=== PATIENT | female | born 1945 | race Caucasian/White ===

== ENCOUNTER 2020-04-06 15:31 | Emergency (ER) | payer OTHER ==
[~2020-04-06] VITALS: Ht 170.2 cm; Wt 77.1 kg
[2020-04-06 15:50] VITALS: BP 148/116
--- NOTE | 2020-04-06 15:57 | NUR ---
74 YEAR OLD FEMALE COMPLAINS OF FLU-LIKE SYMPTOMS X 8-10 DAYS. PATIENT STATES SOB, SPO2 97% RA. WHEEZING HEARD THOUGHOUT. PATIENT STATES COUGH WITH SLIGHT GREEN PHLEGM. DENIES LOSS OF TASTE/SMELL. CHEST EXPANSION SYMMETRICAL. BREATHING EVEN AND UNLABORED. SKIN COLOR APPROPRIATE. AO4, SKIN WARM AND DRY. BED IN LOWEST POSITION, LOCKED, X1 SIDERAIL UP. PMH - ASTHMA, HYSTERECTOMY, CHOLECYSTECTOMY NKA
[2020-04-06] MEDS ORDERED: HYDROcodone/APAP 5/325 MG 1 TAB TAB PO ONE (16:05)
[2020-04-06] MEDS ORDERED: ALBUTEROL SULFATE/IPRATROPIU 3 ML SOL IH ONE (16:05)
--- NOTE | 2020-04-06 16:21 | NUR ---
JESS AND NOVEL CORONAVIRUS NOAM OBTAINED AND TAKEN TO LAB
[2020-04-06 16:41] LABS: APPEARANCE,URINE CLEAR (CLEAR); BILIRUBIN,URINE NEGATIVE (NEGATIVE); BLOOD, URINE TRACE-I (NEGATIVE); COLOR,URINE YELLOW (YELLOW); LEUKOCYTE ESTERASE ,URINE TRACE (NEGATIVE); NITRITE, URINE NEGATIVE (NEGATIVE); UGLUCOSE NEGATIVE (NEGATIVE)
[2020-04-06 17:01] LABS: BASOPHILS # (AUTO) 0.1 K/uL (0.00-0.22); EOSINOPHILS # (AUTO) 2.5 K/uL (0-0.4); EOSINOPHILS % (AUTO) 20.6 % (0.0-4.0); HEMATOCRIT 40.9 % (36-48); HEMOGLOBIN 13.7 g/dL (12.0-16.0); LYMPHOCYTES # (AUTO) 3.4 K/uL (2.5-16.5); LYMPHOCYTES % (AUTO) 28.1 % (20.5-51.1); MEAN CORPUSCULAR HEMOGLOBIN 31 pg (27-31); MEAN CORPUSCULAR HGB CONC 33 g/dL (33-37); MEAN CORPUSCULAR VOLUME 93.2 fL (80-94); MONOCYTES # (AUTO) 0.8 K/uL (0.8-1.0); MONOCYTES % (AUTO) 6.5 % (1.7-9.3); NEUTROPHILS # (AUTO) 5.3 K/uL (1.8-7.7); NEUTROPHILS % (AUTO) 43.8 % (42.2-75.2); PLATELET COUNT (AUTO) 249 K/uL (140-450); RED BLOOD CELL COUNT(AUTO) 4.38 MIL/uL (4.20-5.40); RED CELL DISTRIBUTION WIDTH 12.9 % (11.6-13.7); WHITE BLOOD COUNT (AUTO) 12.2 K/uL (4.8-10.8)
[2020-04-06 17:23] LABS: ALBUMIN 3.7 g/dL (3.4-5.0); ANION GAP 10.7 (8-16); ASPARTATE AMINOTRANSFERASE 20 U/L (15-37); CARBON DIOXIDE 29.6 mmol/L (21-32); CHLORIDE 104 mmol/L (98-107); CREATININE 1.1 mg/dL (0.6-1.3); GLUCOSE 103 mg/dL (74-106); POTASSIUM 4.3 mmol/L (3.5-5.1); SODIUM SERUM 140 mmol/L (136-145); TOTAL BILIRUBIN 0.3 mg/dL (0.0-1.0); UREA NITROGEN, BLOOD 16 mg/dL (7-18)
[2020-04-06 17:36] LABS: WBC,URINE 0-5 /HPF (0-5)
--- NOTE | 2020-04-06 18:28 | NUR ---
RT CALLED, STATE THEY WILL BE HERE SOON
--- NOTE | 2020-04-06 18:37 | NUR ---
PER SUZIE RT, BREATHING TX DONE PRIOR TO HIS ARRIVAL
[2020-04-06 18:39] VITALS: BP 148/116
--- NOTE | 2020-04-06 18:40 | NUR ---
Patient discharged with v/s stable. Written and verbal after care instructions ABOUT ASTHMA AND UPPER RESPIRATORY INFECTION given and explained. Patient alert, oriented and verbalized understanding of instructions. Ambulatory with steady gait. All questions addressed prior to discharge. ID band removed. Patient advised to follow up with PMD. Rx of PREDNISONE, PROMETHAZINE, NORCO, AND ALBUTEROL given. Patient educated on indication of medication including possible reaction and side effects. Opportunity to ask questions provided and answered.
== END 2020-04-06 18:28 | disposition home or self-care (01) ==
LOC: MED 15:31
DX: R05 Cough (principal); M79.10 Myalgia, unspecified site; R06.02 Shortness of breath; J45.909 Unspecified asthma, uncomplicated; Z90.49 Acquired absence of other specified parts of digestive tract; Z20.822 Contact with and (suspected) exposure to COVID-19
CPT/HCPCS: 71045; 80053; 81001; 85025; 87426; 99284; U0003

== ENCOUNTER 2020-05-27 07:33 | Emergency (ER) | payer OTHER ==
[~2020-05-27] VITALS: Ht 167.6 cm; Wt 77.1 kg
[2020-05-27 07:43] VITALS: BP 159/72
--- NOTE | 2020-05-27 07:51 | NUR ---
PT AMB TO BED 8.
--- NOTE | 2020-05-27 07:55 | NUR ---
74 y/o F coming in from home with c/c shortness of breath x cough. Patient states cough with green phlegm, sore throat, and subjective fever/chills x 10 days. Patient states the cough is bothering her at the most. Patient denies chest pain, N/V/D, constipation, headache, dizziness, abdominal pain, back pain, urinary symptoms at this time. Pt denies taking her Albuterol treatment or any other medications prior to arrival. Pt states she is unsure of what worsens the SOB due to being in bed for the past 10 days. Patient placed onto environmental monitoring specialist. Lung sounds wheezes lower and mid lobes. Pt presents to bedside with baseline SpO2 89% on room air; pt placed onto 4L via nasal cannula SpO2 96% after administration. Bed locked in lowest position, side rails x 1, call light in reach. PMH: DM2, Asthma Meds: Metformin, Albuterol Allergies: Pet dander Sx: cholecystectomy 40+ yrs ago, hysterectomy 30+ yrs
[2020-05-27] MEDS ORDERED: guaiFENesin 600 MG TABER PO SCH (08:15)
[2020-05-27] MEDS ORDERED: NACL 0.9% 1,000 ML IV SCH (08:15)
[2020-05-27] MEDS ORDERED: ALBUTEROL SULFATE/IPRATROPIU 3 ML SOL IH ONE ×3 (08:15→10:00)
--- NOTE | 2020-05-27 08:25 | NUR ---
Lab at bedside
--- NOTE | 2020-05-27 08:25 | NUR ---
RT at bedside
--- NOTE | 2020-05-27 08:26 | NUR ---
Dr. Valderrama is evaluating patient at bedside.
--- NOTE | 2020-05-27 08:35 | NUR ---
Xray at bedside
[2020-05-27] MEDS ORDERED: cefTRIAXone 1,000 MG VIAL ONE (08:38)
[2020-05-27 08:53] LABS: BASOPHILS # (AUTO) 0.1 K/uL (0.00-0.22); BASOPHILS % (AUTO) 0.4 % (0.0-2.0); EOSINOPHILS # (AUTO) 0.2 K/uL (0-0.4); EOSINOPHILS % (AUTO) 1.1 % (0.0-4.0); LYMPHOCYTES # (AUTO) 1.6 K/uL (2.5-16.5); LYMPHOCYTES % (AUTO) 11.6 % (20.5-51.1); MEAN CORPUSCULAR HEMOGLOBIN 31 pg (27-31); MEAN CORPUSCULAR HGB CONC 33 g/dL (33-37); MEAN CORPUSCULAR VOLUME 92.7 fL (80-94); MONOCYTES # (AUTO) 1.2 K/uL (0.8-1.0); MONOCYTES % (AUTO) 8.9 % (1.7-9.3); NEUTROPHILS # (AUTO) 10.6 K/uL (1.8-7.7); PLATELET COUNT (AUTO) 226 K/uL (140-450); RED BLOOD CELL COUNT(AUTO) 4.21 MIL/uL (4.20-5.40); RED CELL DISTRIBUTION WIDTH 12.8 % (11.6-13.7); WHITE BLOOD COUNT (AUTO) 13.6 K/uL (4.8-10.8)
[2020-05-27 09:02] LABS: ANION GAP 14.7 (8-16); CARBON DIOXIDE 25.6 mmol/L (21-32); CHLORIDE 99 mmol/L (98-107); GLUCOSE 175 mg/dL (74-106); POTASSIUM 4.3 mmol/L (3.5-5.1); SODIUM SERUM 135 mmol/L (136-145); UREA NITROGEN, BLOOD 14 mg/dL (7-18)
[2020-05-27 09:09] LABS: ALBUMIN 3.3 g/dL (3.4-5.0); ASPARTATE AMINOTRANSFERASE 15 U/L (15-37); TOTAL BILIRUBIN 1.2 mg/dL (0.0-1.0)
--- NOTE | 2020-05-27 09:17 | NUR ---
Alma Delia jacinto and novel swabs collected, walked to lab and handed to jessee Chand tech.
--- NOTE | 2020-05-27 09:35 | NUR ---
Urine sample collected, handed to jessee Chand tech.
--- NOTE | 2020-05-27 10:05 | NUR ---
Dr. Valderrama is reevaluating patient at bedside
--- NOTE | 2020-05-27 10:09 | NUR ---
RT at bedside
[2020-05-27] MEDS ORDERED: GUAI-646 PO (10:10)
[2020-05-27] MEDS ORDERED: AMOX1TER15 PO (10:10)
--- NOTE | 2020-05-27 10:20 | NUR ---
Patient does not wish to proceed with medical care recommended by Dr. Valderrama. Patient given information related to possible complications, up to and including , which could occur as a result of leaving hospital at this time. Patient verbalizes understanding of risks involved leaving against medical advice. Patient has signed AMA form.
[2020-05-27 10:21] VITALS: BP 153/71
--- NOTE | 2020-05-27 10:21 | NUR ---
PATIENT SIGNED AMA; received discharge medications and instructions Patient discharged with v/s stable. Written and verbal after care instructions given and explained. Patient alert, oriented and verbalized understanding of instructions. Ambulatory with steady gait. All questions addressed prior to discharge. ID band removed. Patient advised to follow up with PMD. Rx of Amoxicillin/Potassium Clav, Guaifenesin given. Patient educated on indication of medication including possible reaction and side effects. Opportunity to ask questions provided and answered.
[2020-05-27 10:26] LABS: BILIRUBIN,URINE 1+ (NEGATIVE); BLOOD, URINE 1+ (NEGATIVE); COLOR,URINE YELLOW (YELLOW); LEUKOCYTE ESTERASE ,URINE TRACE (NEGATIVE); NITRITE, URINE NEGATIVE (NEGATIVE); PH,URINE 6.5 (5.0-9.0); UGLUCOSE NEGATIVE (NEGATIVE)
[2020-05-27 10:37] LABS: APPEARANCE,URINE SLIGHTLY HAZY (CLEAR)
[2020-05-27 10:38] LABS: RBC,URINE 0-5 /HPF (0-5)
== END 2020-05-27 10:21 | disposition left against medical advice (07) ==
LOC: MED 07:33
DX: J96.91 Respiratory failure, unspecified with hypoxia (principal); Z20.822 Contact with and (suspected) exposure to COVID-19; J32.9 Chronic sinusitis, unspecified; E78.5 Hyperlipidemia, unspecified; J45.901 Unspecified asthma with (acute) exacerbation; E11.9 Type 2 diabetes mellitus without complications; Z90.49 Acquired absence of other specified parts of digestive tract; Z90.710 Acquired absence of both cervix and uterus; Z79.899 Other long term (current) drug therapy
CPT/HCPCS: 36415; 36600; 71045; 80053; 81001; 82803; 83605; 84484; 85025; 87040; 87086; 87426; 93005; 94640; 94760; 96365; 99285; J0696; J7030; J7060; U0003